=== PATIENT | male | born 1960 | race Asian ===

== ENCOUNTER 2017-04-15 05:27 | Day surgery (SDC) | payer BC ==
[~2017-04-15] VITALS: Ht 162.6 cm; Wt 75.7 kg
[2017-04-15] MEDS ORDERED: CEFAZOLIN 1 GM IVPB PREMIX 50 ML IV ONE (06:19)
[2017-04-15] MEDS ORDERED: CEFAZOLIN SOD 1 GM/ ISO 50 ML PREMIX IV ONE (07:00)
[2017-04-15] MEDS ORDERED: ONDANSETRON HCL 4 MG/2 ML VIAL IVP ONE (07:30)
[2017-04-15] MEDS ORDERED: MIDAZOLAM HCL 5 MG/5 ML VIAL IVP ONE (07:30)
[2017-04-15] MEDS ORDERED: PROPOFOL 200MG/ 20ML VIAL (DIPRIVAN) IV ONE (07:30)
[2017-04-15] MEDS ORDERED: LR 1,000 ML IV.SOLN IV ONE (07:30)
[2017-04-15] MEDS ORDERED: NS IRRIG SOLN 1000 ML IR ONE (07:30)
[2017-04-15] MEDS ORDERED: SEVOFLURANE 15 MIN GAS INH ONE (07:30)
[2017-04-15] MEDS ORDERED: fentaNYL CITRATE 250 MCG/5 ML AMP IV ONE (07:30)
[2017-04-15] MEDS ORDERED: ROCURONIUM BROMIDE 10 MG/ML (ZEMURON) IV ONE (07:30)
[2017-04-15] MEDS ORDERED: POLYMYXIN 500,000/BACIT.10,000 UNITS in NS IRR 1 L IR ONE (07:39)
[2017-04-15] MEDS ORDERED: IOHEXOL 50 ML IV ONE (07:48)
[2017-04-15] MEDS ORDERED: LR 1,000 ML IV SCH (08:36)
[2017-04-15] MEDS ORDERED: METOCLOPRAMIDE HCL 10 MG/2 ML VIAL IVP PRN (08:45)
[2017-04-15] MEDS ORDERED: MORPHINE 4 MG/ML INJ. SYRINGE IVP PRN ×3 (08:45)
[2017-04-15] MEDS ORDERED: D5/0.45 NS 1,000 ML IV SCH (08:51)
[2017-04-15] MEDS ORDERED: HYDROcodone/ACETAMIN 5-325 MG TAB (NORCO/ VICODIN) PO PRN ×2 (09:00)
[2017-04-15] MEDS ORDERED: HYDROmorphone 1 MG INJ. 1 MG/ML AMPUL IVP PRN (09:00)
[2017-04-15 09:50] VITALS: BP_SYST 127
[2017-04-15] MEDS ORDERED: HYDROcodone/ACETAMIN 5-325 MG TAB (NORCO/ VICODIN) ONE (09:56)
== END 2017-04-15 11:15 | disposition home or self-care (01) ==
LOC: SDS 05:27
PROVIDERS: ATTEND Colon & Rectal Surgery
DX: K80.10 Calculus of gallbladder with chronic cholecystitis without obstruction (principal); K42.0 Umbilical hernia with obstruction, without gangrene; Z98.890 Other specified postprocedural states
CPT/HCPCS: 47563; 49587; 76000; 88302; 88304; C1727; C1758; J0690; J2250; J2405; J2704; J3010; J7120; Q9967